=== PATIENT | female | born 1985 | race Caucasian/White ===

== ENCOUNTER 2016-12-26 13:55 | Emergency (ER) | payer OTHER ==
[~2016-12-26] VITALS: Ht 167.6 cm; Wt 63.5 kg
[~2016-12-26 13:55] MED LIST: AZIT250T PO; PRED50TA PO
[2016-12-26] MEDS ORDERED: TRAM-29 PO (14:28)
[2016-12-26] MEDS ORDERED: ONDA4TAB10 SL (14:28)
[2016-12-26] MEDS ORDERED: PENI500T PO (14:28)
--- NOTE | 2016-12-26 14:28 | PHYS DOC ---
General Chief Complaint: HEADACHE Stated Complaint: HEAD PAIN Time Seen by MD: 14:03 Source: patient Problems: History of Present Illness Initial Comments 31-year-old female patient complaining of right side of face with addition to ear and head since yesterday as a constant pain that is not like usual headache. Patient states she has a bad tooth and thinks the pain is related to her dental cavity. Allergies: Coded Allergies: No Known Drug Allergies (Unverified , 12/26/16) Review of Systems Constitutional: see HPI EENTM: see HPI Respiratory: see HPI Cardiovascular: see HPI Gastrointestinal: see HPI Genitourinary: see HPI Musculoskeletal: see HPI Skin: see HPI Psychiatric/Neurological: see HPI Hematologic/Lymphatic: see HPI Immunological/Allergic: see HPI All Other Systems: Reviewed and Negative Physical Exam General Appearance: WD/WN, no apparent distress, mild distress Eyes: bilateral eye EOMI, bilateral eye PERRL, bilateral eye normal inspection Ear, Nose, Throat: hearing grossly normal, normal ENT inspection, normal pharynx, other (extensive dental cvavities ) Neck: non-tender, full range of motion, supple Respiratory: chest non-tender, lungs clear, normal breath sounds Cardiovascular: normal peripheral pulses, regular rate, rhythm, no edema Orders, Labs, Meds Patient did not want to have pain with seen in ER Departure Departure: Impression: Primary Impression: Headache Additional Impression: Dental cavities Disposition: 01 HOME, SELF-CARE Condition: STABLE Patient Instructions: Tooth Fracture Additional Instructions: Quit smoking Follow-up with your dentist Scripts Penicillin V Potassium 500 Mg Tablet1 Tab PO TID #20 TAB Prov:DENNIS WAGNER MD 12/26/16 Tramadol Hcl (Ultram)50 Mg Nmtimi13 Mg PO PRN Q6HRS PRN PAIN #14 TAB Prov:DENNIS WAGNER MD 12/26/16 Ondansetron (Zofran Odt)4 Mg Tab.rapdis1 Tab SL Q8HRS #15 TAB Prov:DENNIS WAGNER MD 12/26/16 DENNIS WAGNER MD Dec 26, 2016 14:28
[2016-12-26 14:35] VITALS: BP 115/71
== END 2016-12-26 14:35 | disposition home or self-care (01) ==
LOC: ER 13:55
DX: R51 Headache (principal); K02.9 Dental caries, unspecified
CPT/HCPCS: 99283

== ENCOUNTER 2017-01-25 18:36 | Emergency (ER) | payer OTHER ==
[~2017-01-25] VITALS: Ht 167.6 cm; Wt 64.0 kg
[~2017-01-25 18:36] MED LIST changes: +ONDA4TAB10 SL; +PENI500T PO; +TRAM-29 PO
[2017-01-25 18:41] VITALS: BP 110/71
--- NOTE | 2017-01-25 18:59 | PHYS DOC ---
General Chief Complaint: ANKLE PROBLEM Stated Complaint: LEFT ANKLE PAIN Time Seen by MD: 18:51 Source: patient, other Problems: History of Present Illness Initial Comments Patient here with for left ankle pain. 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 This happened about a half prior to arrival in emergency department. She's been unable to walk on it since and says it hurts to straighten her leg as well. There is no real numbness tingling or weakness in the foot or toes. She did take some ynkm-ecl-zryqjjy pain medicine for this prior to arrival in the ER. notes that ankle swollen considerably within the last half hour since they removed her shoe and sock. Patient complaining of pain mostly over the lateral aspect of the ankle. As noted, she has no distal complaints, and there is no other injuries noted or reported. Patient's past medical history is otherwise unremarkable. She denies chance of . She smokes a quarter pack of cigarettes daily. She does occasional social user of ethanol. Allergies: Coded Allergies: No Known Drug Allergies (Unverified , 12/26/16) Review of Systems Constitutional: no symptoms reported Musculoskeletal: see HPI Skin: no symptoms reported Psychiatric/Neurological: no symptoms reported Physical Exam General Appearance: WD/WN, mild distress Extremities: other Neurologic/Psychiatric: alert, normal mood/affect, oriented x 3 Skin: normal color Comments Generally this is a thin white female who is moderately anxious and mildly uncomfortable with ankle pain. Vitals are as noted. Pertinent findings on physical exam shows the left ankle to be swollen significant over the lateral malleolus. There is tenderness at that site with some exaggerated response as well. There is minimal tenderness medially no swelling. The ankle joint itself appears to have some slight laxity laterally. There is no gross deformity and no crepitus. There are no distal foot or toe motor sensory or vascular deficits appreciated. Remainder of physical exam is clinically unremarkable. Orders, Labs, Meds Old charts note isolated prior ER visits for headache and URI. X-rays the left ankle show no acute fracture dislocation per the emergency physician. 1930 Patient resting comfortably in the ED. I discussed with the patient most likely diagnosis of left ankle sprain. We'll go and put her in an Aircast tonight. We'll also give her some appropriate medication at home for pain, and I written a prescription for Lortab accordingly. Also given her Lortab here. We discussed home care including rest, ice, elevation, weightbearing as tolerated, and range of motion exercises to the ankle. She voices understanding of the need to follow up with primary care or return to the ER sooner as needed if worsening anyway. She looks well, in no acute discomfort distress, resting calmly and playing on her cell phone, and okay for discharge home at this time. NYASIA CRYSTAL MD Jan 25, 2017 18:59
[2017-01-25] MEDS ORDERED: HYDROCODONE/APAP 10/325 TABLET. PO ONE (19:45)
--- NOTE | 2017-01-26 08:10 | RAD ---
ANKLE LEFT 3V Clinical Indication: Twisting injury to left ankle today, severe pain Comparison: None. Technique: Frontal, oblique and lateral views of the left ankle are obtained. Findings: No acute fracture or dislocation is seen. Ankle mortise is maintained. Surrounding soft tissues demonstrate no acute finding. IMPRESSION: No acute osseous injury.
== END 2017-01-25 19:36 | disposition home or self-care (01) ==
LOC: ER 18:36
DX: M25.572 Pain in left ankle and joints of left foot (principal); F17.210 Nicotine dependence, cigarettes, uncomplicated; X58.XXXA Exposure to other specified factors, initial encounter; Y93.89 Activity, other specified; Y99.8 Other external cause status; Y92.89 Other specified places as the place of occurrence of the external cause
CPT/HCPCS: 73610; 99284

== ENCOUNTER 2017-04-17 21:12 | Emergency (ER) | payer OTHER ==
[~2017-04-17] VITALS: Ht 170.2 cm; Wt 63.5 kg
[~2017-04-17 21:12] MED LIST changes: -TRAM-29 PO; +TRAM-48 PO
[2017-04-17 21:15] VITALS: BP 132/80
[2017-04-17] MEDS ORDERED: 0.9 % SODIUM CHLORIDE 10 ML DISP.SYRIN. IV PRN (21:15)
[2017-04-17] MEDS ORDERED: ASPIRIN 81 MG TAB.CHEW PO ONE (21:20)
[2017-04-17] MEDS ORDERED: IV NORMAL SALINE 1,000ML 1,000 ML IV SCH (21:20)
--- NOTE | 2017-04-17 21:26 | PHYS DOC ---
Past History Past Medical History: No Pertinent History Past Surgical History: No Surgical History, Other Smoking: Non-smoker Alcohol Use: Occasionally Drug Use: None Adult General Chief Complaint Chief Complaint: chest pain HPI HPI Patient is a pleasant 32-year-old female with a chest pain complaint ongoing for days. She typically cleans houses but developed chest pain anterior chest with radiating to the right left side of the jaw the right side of the chest described as a pressure. It is sharp and stabbing in some regards worse with position but not change with exertion or breathing. Patient has not had a cough or URI symptoms fevers chills or other associated symptoms with this chest pain. She is noted that a dull ache for of 10 at this time but never completely goes away. She's never had this symptom before. She denies any trauma denies any travel. She also denies any antibiotics. She has no significant medical problems or prior surgeries but she does have a significant family history in her father's had 2 mild heart attacks. Differential diagnosis for chest pain: Pericarditis, myocarditis, endocarditis, pneumothorax, pneumonia, aortic dissection, esophageal spasm, esophagitis, peptic ulcer disease, acute coronary syndrome, mediastinitis, Boerhaave syndrome , musculoskeletal chest wall pain, costochondritis, intercostal strain, rib fracture, pulmonary contusion, pneumonitis, pleural effusion, pericardial effusion, pericardial tamponode, and pleurisy. Was considered upon arrival patient is on no external sources of estrogen. PERC Criteria Assessment: Age > 50: No HR > 100: No 02 < 95%: No H/o DVT/PE: No Recent trauma/surgery: No Hemoptysis No Exogenous Estrogen: No Unilateral Leg swelling: No Pretest probability > 15%: No Less than 2% risk of PE. No further work up is necessary Concerning this is negative patient will not have any need for PE workup at this time. Review of Systems Review of Systems Constitutional: Denies fever or chills [] Eyes: Denies change in visual acuity, redness, or eye pain [] HENT: Denies nasal congestion or sore throat [] Respiratory: Denies cough or shortness of breath [] Cardiovascular: No additional information not addressed in HPI [] GI: Denies abdominal pain, nausea, vomiting, bloody stools or diarrhea [] : Denies dysuria or hematuria [] Musculoskeletal: Denies back pain or joint pain [] Integument: Denies rash or skin lesions [] Neurologic: Denies headache, focal weakness or sensory changes [] Endocrine: Denies polyuria or polydipsia [] Current Medications Current Medications Current Medications Medications (Trade) Dose Ordered Sig/Robert Start Time Stop Time Status Last Admin Dose Admin Aspirin (Children'S Aspirin) 324 mg 1X ONCE 04/17/17 21:20 04/17/17 21:21 DC Sodium Chloride (Normal Saline Flush) 10 ml QSHIFT PRN 04/17/17 21:15 Allergies Allergies Allergies Coded Allergies Type Severity Reaction Last Updated Verified No Known Drug Allergies 12/26/16 No Physical Exam Physical Exam Vital signs heart rate of 81 respiratory rate 16 and saturation 96% on room air blood pressure 132/80 otherwise normal. Constitutional: Well developed, well nourished, no acute distress, non-toxic appearance. [] HENT: Normocephalic, atraumatic, bilateral external ears normal, oropharynx moist, no oral exudates, nose normal. [] Eyes: PERRLA, EOMI, conjunctiva normal, no discharge. [] Neck: Normal range of motion, no tenderness, supple, no stridor. [] Cardiovascular:Heart rate regular rhythm, no murmur no chest wall tender to palpation is reproducible. Lungs & Thorax: Bilateral breath sounds clear to auscultation [] Abdomen: Bowel sounds normal, soft, no tenderness, no masses, no pulsatile masses. [] Skin: Warm, dry, no erythema, no rash. [] Back: No tenderness, no CVA tenderness. [] Extremities: No tenderness, no cyanosis, no clubbing, ROM intact, no edema. [] Neurologic: Alert and oriented X 3, normal motor function, normal sensory function, no focal deficits noted. [] Psychologic: Affect normal, judgement normal, mood normal. [] Current Patient Data Lab Results Laboratory Tests Test 04/17/17 21:50 04/17/17 21:58 White Blood Count 6.9 x10^3/uL (4.0-11.0) Red Blood Count 4.72 x10^6/uL (3.50-5.40) Hemoglobin 14.5 g/dL (12.0-15.5) Hematocrit 41.4 % (36.0-47.0) Mean Corpuscular Volume 88 fL (79-100) Mean Corpuscular Hemoglobin 31 pg (25-35) Mean Corpuscular Hemoglobin Concent 35 g/dL (31-37) Red Cell Distribution Width 12.9 % (11.5-14.5) Platelet Count 233 x10^3/uL (140-400) Neutrophils (%) (Auto) 61 % (31-73) Lymphocytes (%) (Auto) 29 % (24-48) Monocytes (%) (Auto) 7 % (0-9) Eosinophils (%) (Auto) 2 % (0-3) Basophils (%) (Auto) 1 % (0-3) Neutrophils # (Auto) 4.2 x10^3uL (1.8-7.7) Lymphocytes # (Auto) 2.0 x10^3/uL (1.0-4.8) Monocytes # (Auto) 0.5 x10^3/uL (0.0-1.1) Eosinophils # (Auto) 0.1 x10^3/uL (0.0-0.7) Basophils # (Auto) 0.1 x10^3/uL (0.0-0.2) Urine Collection Type Void Urine Color Yellow Urine Clarity Clear Urine pH 7.0 Urine Specific [place] 1.020 Urine Protein Neg (NEG-TRACE) Urine Glucose (UA) Neg mg/dL (NEG) Urine Ketones (Stick) Neg mg/dL (NEG) Urine Blood Trace (NEG) Urine Nitrite Neg (NEG) Urine Bilirubin Neg (NEG) Urine Urobilinogen Dipstick 1 mg/dL (0.2 mg/dL) Urine Leukocyte Esterase Neg (NEG) Urine RBC 1-2 /HPF (0-2) Urine WBC 1-4 /HPF (0-4) Urine Squamous Epithelial Cells Occ /LPF Urine Bacteria Few /HPF (0-FEW) Urine Mucus Slight /LPF Sodium Level 142 mmol/L (136-145) Potassium Level 3.4 mmol/L (3.5-5.1) L Chloride Level 103 mmol/L (98-107) Carbon Dioxide Level 33 mmol/L (21-32) H Anion Gap 6 (6-14) Blood Urea Nitrogen 13 mg/dL (7-20) Creatinine 0.8 mg/dL (0.6-1.0) Estimated GFR (Cockcroft-Gault) 84.2 BUN/Creatinine Ratio 16 (6-20) Glucose Level 90 mg/dL (70-99) Calcium Level 8.5 mg/dL (8.5-10.1) Magnesium Level 1.9 mg/dL (1.8-2.4) Total Bilirubin 0.4 mg/dL (0.2-1.0) Aspartate Amino Transferase (AST) Pending Alanine Aminotransferase (ALT) 14 U/L (14-59) Alkaline Phosphatase 88 U/L (46-116) Creatine Kinase 74 U/L (26-192) Creatine Kinase MB (Mass) 0.5 ng/mL (0.0-3.6) Creatine Kinase MB Relative Index 0.7 % (0-4) Troponin I Quantitative < 0.017 ng/mL (0-0.055) IT-Zfa-D-Type Natriuretic Peptide 35 pg/mL (0-124) Total Protein 7.4 g/dL (6.4-8.2) Albumin 3.9 g/dL (3.4-5.0) Albumin/Globulin Ratio 1.1 (1.0-1.7) Lipase 124 U/L (73-393) POC Urine HCG, Qualitative hcg negative (Negative) EKG EKG EKG timed 10:05 PM 04/17/2017 devastate normal heart rate of 68 normal sinus rhythm with no ST segment or T-wave changes consistent with acute coronary ischemia. [place] interval is normal at 146 QRS is normal 82 QTC is normal at 398. This is a normal looking EKG read by Dr. Collier. [] Radiology/Procedures Radiology/Procedures [] Course & Med Decision Making Course & Med Decision Making Pertinent Labs and Imaging studies reviewed. (See chart for details) I reviewed patient's notes, patient's complaint and duration of symptoms.Differential diagnosis for chest pain: Pericarditis, myocarditis, endocarditis, pneumothorax , pneumonia, aortic dissection, esophageal spasm, esophagitis, peptic ulcer disease, acute coronary syndrome, mediastinitis, Boerhaave syndrome, musculoskeletal chest wall pain, costochondritis, intercostal strain, rib fracture, pulmonary contusion, pneumonitis, pleural effusion, pericardial effusion, pericardial tamponode, and pleurisy. Was considered upon arrival patient has a negative EKG, negative chest x-ray negative troponin no evidence of inflammation on physical exam. This is my likely musculoskeletal or pleurisy in nature. Patient will be given anti-inflammatory and some of her breakthrough pain and encouraged follow-up with her primary care doctor. Impression: Chest pain of unclear etiology Disposition: Follow-up with her PCP for further cardiology Heart score was considered patient is low risk and be seen as an outpatient no need for admission. History: Highly suspicious 2 points moderately suspicious 1. slightly suspicious 0 point EKG: ST segment depression 2. nonspecific repolarization disturbance 1. normal 0 point Age: Greater than 65 2 points, 65-45 1., less than 45 years old 0 points Risk factors:> 3 risk factors 2 points, 1-2 risk factors one point, no risk factors 0 point Troponin: > 2 times normal 2 points, 1-2 times normal 1., normal limits 0 point Total score: Score % pts MACE/n MACE Policy 0-3 32% 1.9% 0.05% Discharge 4-6 51% 413/3136 13% 1.3% Observation Risk management 7-10 17% 518/1045 50% 2.8% Observation Treatment, CAG [] Dragon Disclaimer Dragon Disclaimer This chart was dictated in whole or in part using Voice Recognition software in a busy, high-work load, and often noisy Emergency Department environment. It may contain unintended and wholly unrecognized errors or omissions. Departure Departure: Impression: Primary Impression: Chest pain Disposition: 01 HOME, SELF-CARE Condition: IMPROVED Referrals: NON,STAFF (PCP) Patient Instructions: Chest Pain (Nonspecific), Chest Wall Pain Additional Instructions: Please follow-up your primary care doctor for referral to a windows systems administrator. Your chest pain is atypical in nature and there is no demonstrated injury to her heart today. This does not mean he do not have heart disease but I do not believe he is having a heart attack at this time. Please return for any new or increasing symptoms or given any questions or concerns. I would encourage you to use anti-inflammatories at this time for your chest discomfort and have you follow-up with your regular doctor for routine care. Scripts Naproxen (NAPROSYN) 500 Mg Tablet 1 TAB PO BID, #20 TAB 1 Refill Prov: ARMANDO COLLIER MD 04/17/17 ARMANDO COLLIER MD Apr 17, 2017 21:25
[2017-04-17 22:11] LABS: BILIRUBIN,URINE NEG (NEG); CLARITY,URINE CLEAR; COLOR,URINE YELLOW; GLUCOSE,URINE NEG (NEG); NITRITE,URINE NEG (NEG); UROBILINOGEN,URINE 1 mg/dL (0.2 mg/dL)
[2017-04-17 22:16] LABS: BACTERIA,URINE FEW /HPF (0-FEW); SQUAMOUS EPITHELIAL CELL,UR OCC /LPF
[2017-04-17 22:17] LABS: BASO # 0.1 x10^3/uL (0.0-0.2); BASO % 1 % (0-3); EOS # 0.1 x10^3/uL (0.0-0.7); EOS % 2 % (0-3); HEMATOCRIT 41.4 % (36.0-47.0); HEMOGLOBIN 14.5 g/dL (12.0-15.5); LYMPH % 29 % (24-48); MEAN CORPUSCULAR HEMOGLOBIN 31 pg (25-35); MEAN CORPUSCULAR HGB CONC 35 g/dL (31-37); MEAN CORPUSCULAR VOLUME 88 fL (79-100); MONO # 0.5 x10^3/uL (0.0-1.1); MONO % 7 % (0-9); NEUT # 4.2 x10^3uL (1.8-7.7); NEUT % 61 % (31-73); PLATELET COUNT 233 x10^3/uL (140-400); RED BLOOD COUNT 4.72 x10^6/uL (3.50-5.40); RED CELL DISTRIBUTION WIDTH 12.9 % (11.5-14.5); WHITE BLOOD COUNT 6.9 x10^3/uL (4.0-11.0)
--- NOTE | 2017-04-17 22:22 | EKG ---
[address] [address] Test Date: 2017-04-17 Test Time: 22:05:23 Pat Name: HERSON FRIED Department: Room: Gender: F Software Systems Architect: HERSON FRIED : 1985 Requested By: ARMANDO COLLIER Order Number: [id number] Reading MD: Measurements Intervals [place] Rate: 68 P: 49 FL: 146 QRS: 84 QRSD: 82 T: 34 QT: 370 QTc: 398 Interpretive Statements SINUS RHYTHM QRS(T) CONTOUR ABNORMALITY CANNOT RULE OUT ANTEROSEPTAL MYOCARDIAL DAMAGE RI6.01 Unconfirmed report No previous ECG available for comparison
[2017-04-17 22:33] LABS: ALBUMIN 3.9 g/dL (3.4-5.0); ALBUMIN/GLOBULIN RATIO 1.1 (1.0-1.7); CALCIUM 8.5 mg/dL (8.5-10.1); CREATININE 0.8 mg/dL (0.6-1.0); GFR 84.2; MAGNESIUM 1.9 mg/dL (1.8-2.4); POTASSIUM 3.4 mmol/L (3.5-5.1); TOTAL BILIRUBIN 0.4 mg/dL (0.2-1.0); TOTAL PROTEIN 7.4 g/dL (6.4-8.2)
[2017-04-17] MEDS ORDERED: NAPR500T PO (22:48)
--- NOTE | 2017-04-18 08:15 | RAD ---
Chest, 2 views, 04/17/2017: History: Mid chest pain The heart size and pulmonary vascularity are normal. The lungs are clear. There is no evidence of pleural fluid. IMPRESSION: No acute cardiopulmonary abnormality is detected.
== END 2017-04-17 23:05 | disposition home or self-care (01) ==
LOC: ER 21:12
DX: R07.89 Other chest pain (principal)
CPT/HCPCS: 36415; 71020; 80053; 81001; 81025; 82553; 83690; 83735; 83880; 84443; 84484; 85027; 93005; 96360; 99285-25; J7030

== ENCOUNTER 2017-07-03 20:50 | Emergency (ER) | payer OTHER ==
[~2017-07-03] VITALS: Ht 170.2 cm; Wt 68.9 kg
[~2017-07-03 20:50] MED LIST changes: +NAPR500T PO
[2017-07-03] MEDS ORDERED: IBUPROFEN 600 MG TABLET. PO ONE (21:45)
--- NOTE | 2017-07-03 22:09 | EKG ---
[address] [address] Test Date: 2017-07-03 Test Time: 21:10:30 Pat Name: HERSON FRIED Department: Room: Gender: F Custodial Manager: : 1985 Requested By: DAI SANTOS Order Number: [id number] Reading MD: Measurements Intervals [place] Rate: 79 P: 46 [place]: 144 QRS: 89 QRSD: 80 T: 23 QT: 344 QTc: 395 Interpretive Statements SINUS RHYTHM NO SPECIFIC ECG ABNORMALITIES RI6.01 No previous ECG available for comparison
--- NOTE | 2017-07-04 00:09 | PHYS DOC ---
Past History Past Medical History: Endometriosis, Other Past Surgical History: No Surgical History, Other Smoking: Non-smoker Alcohol Use: Occasionally Drug Use: None Adult General Chief Complaint Chief Complaint: CHEST PAIN HPI HPI 32-year-old female with no significant past medical history now presents to the emergency department complaining of sharp pain in her left lung area when she coughs. Patient is a smoker and smokes daily. Over the last 2 days she's had a productive cough. Today she evolved left-sided soreness when she coughs. She is not short of breath at rest or with exertion. She has no fevers chills sweats or shaking chills. Patient does not have exertional chest pain of any kind. She has no history of hypercoagulability nor has she ever had a blood clot. She has no leg swelling or pain and no recent history of stasis or risk factors for pulmonary embolism. Patient denies possibility of as she states her man as a vasectomy and she's had normal menses. Review of Systems Review of Systems Constitutional: Denies fever or chills [] Eyes: Denies change in visual acuity, redness, or eye pain [] HENT: Denies nasal congestion or sore throat [] Respiratory: Denies cough or shortness of breath [] Cardiovascular: No additional information not addressed in HPI [] GI: Denies abdominal pain, nausea, vomiting, bloody stools or diarrhea [] : Denies dysuria or hematuria [] Musculoskeletal: Denies back pain or joint pain [] Integument: Denies rash or skin lesions [] Neurologic: Denies headache, focal weakness or sensory changes [] Endocrine: Denies polyuria or polydipsia [] Current Medications Current Medications Current Medications Medications (Trade) Dose Ordered Sig/[facility] Start Time Stop Time Status Last Admin Dose Admin Ibuprofen (Motrin) 600 mg 1X ONCE 07/03/17 21:45 07/03/17 21:46 DC 07/03/17 22:17 600 MG Allergies Allergies Allergies Coded Allergies Type Severity Reaction Last Updated Verified No Known Drug Allergies 12/26/16 No Physical Exam Physical Exam Well-appearing patient no acute distress supple neck clear lungs regular rate and rhythm nontender chest wall no skin changes no subcutaneous air of the chest wall. Nontender abdomen specifically benign left subcostal distribution and epigastrium. No CVA tenderness. Normal lower extremities with no asymmetry or tenderness no cords. Constitutional: Well developed, well nourished, no acute distress, non-toxic appearance. [] HENT: Normocephalic, atraumatic, bilateral external ears normal, oropharynx moist, no oral exudates, nose normal. [] Eyes: PERRLA, EOMI, conjunctiva normal, no discharge. [] Neck: Normal range of motion, no tenderness, supple, no stridor. [] Cardiovascular:Heart rate regular rhythm, no murmur [] Lungs & Thorax: Bilateral breath sounds clear to auscultation [] Abdomen: Bowel sounds normal, soft, no tenderness, no masses, no pulsatile masses. [] Skin: Warm, dry, no erythema, no rash. [] Back: No tenderness, no CVA tenderness. [] Extremities: No tenderness, no cyanosis, no clubbing, ROM intact, no edema. [] Neurologic: Alert and oriented X 3, normal motor function, normal sensory function, no focal deficits noted. [] Psychologic: Affect normal, judgement normal, mood normal. [] Current Patient Data Vital Signs Vital Signs Date Time Temp Pulse Resp B/P (MAP) Pulse Ox O2 Delivery O2 Flow Rate FiO2 07/03/17 21:18 98.3 80 24 97 Room Air Lab Results Laboratory Tests Test 07/03/17 22:15 D-Dimer (Toya) < 0.19 mg/L (0.00-0.50) EKG EKG [] Radiology/Procedures Radiology/Procedures Wrist x-ray no acute disease, bilateral nipple piercings in place, interpreted by me[] Course & Med Decision Making Course & Med Decision Making Pertinent Labs and Imaging studies reviewed. (See chart for details) Signs and symptoms consistent with pleuritic pain in the setting of history and findings that suggest upper respiratory infection complicated by chronic tobacco abuse. Patient with low pretest probability for pulmonary embolism and a negative d-dimer. Chest x-ray unremarkable. Discussed with patient recommend smoking cessation and using [id number]-[id number] cough control as needed. She is aware to rest and drink plenty of fluids. She will use NSAIDs and Tylenol as needed for discomfort and follow with her primary care doctor for reevaluation and further workup and treatment as needed. She and her significant other agree with outpatient follow-up and strict return precautions given [] Dragon Disclaimer Dragon Disclaimer This chart was dictated in whole or in part using Voice Recognition software in a busy, high-work load, and often noisy Emergency Department environment. It may contain unintended and wholly unrecognized errors or omissions. Departure Departure: Impression: Primary Impression: Upper respiratory infection Additional Impressions: Pleurisy Cough Disposition: HOME, SELF-CARE Condition: IMPROVED Referrals: NON,STAFF (PCP) Patient Instructions: Pleurisy, Upper Respiratory Infection, Adult Additional Instructions: It appears that you have an upper respiratory infection causing your cough. Be aware that smoking predisposes you to upper respiratory infections and can also make a respiratory illness worse. Your sharp pain appears to be a result of pleurisy which means irritation of the lung lining. Typically this pain is sharp in nature and worse with breathing or coughing. Take ibuprofen 800 mg every 6 hours and Tylenol every 4 hours as needed. Your x-ray was normal today. Follow-up with your doctor in 1-2 days for reevaluation and to discuss techniques of smoking cessation. Return immediately for new severe worsening symptoms Problem Qualifiers DAI SANTOS MD Jul 04, 2017 00:09
[2017-07-04 00:15] VITALS: BP 107/65
--- NOTE | 2017-07-04 09:38 | RAD ---
Chest, 2 views, 07/03/2017: History: Chest pain, cough Comparison is made to a study from 04/17/2017. The heart size and pulmonary vascularity are normal. No pulmonary infiltrates are seen. There is no evidence of pleural fluid. IMPRESSION: No acute cardiopulmonary abnormality is detected.
== END 2017-07-04 00:20 | disposition home or self-care (01) ==
LOC: ER 20:50
DX: R09.1 Pleurisy (principal); J06.9 Acute upper respiratory infection, unspecified
CPT/HCPCS: 36415; 71020; 85379; 93005; 99285-25

== ENCOUNTER 2017-11-27 06:06 | Emergency (ER) | payer SELFPAY ==
[~2017-11-27] VITALS: Ht 170.2 cm; Wt 75.1 kg
[~2017-11-27 06:06] MED LIST changes: +NAPR-683 PO; -NAPR500T PO
[2017-11-27] MEDS ORDERED: KETOROLAC 60 MG/2 ML VIAL. IM ONE (06:45)
[2017-11-27] MEDS ORDERED: IV NORMAL SALINE 1,000ML 1,000 ML IV ONE (07:00)
[2017-11-27] MEDS ORDERED: ONDANSETRON PF 4 MG/2 ML VIAL. ONE (07:04)
[2017-11-27] MEDS ORDERED: ONDANSETRON PF 4 MG/2 ML VIAL. IV ONE (07:15)
[2017-11-27 07:20] LABS: BASO # 0.1 x10^3/uL (0.0-0.2); BASO % 1 % (0-3); EOS # 0.2 x10^3/uL (0.0-0.7); EOS % 2 % (0-3); HEMATOCRIT 42.6 % (36.0-47.0); HEMOGLOBIN 14.9 g/dL (12.0-15.5); LYMPH # 1.2 x10^3/uL (1.0-4.8); LYMPH % 10 % (24-48); MEAN CORPUSCULAR HEMOGLOBIN 31 pg (25-35); MEAN CORPUSCULAR HGB CONC 35 g/dL (31-37); MEAN CORPUSCULAR VOLUME 87 fL (79-100); MONO # 0.7 x10^3/uL (0.0-1.1); MONO % 5 % (0-9); NEUT # 10.4 x10^3uL (1.8-7.7); NEUT % 83 % (31-73); PLATELET COUNT 188 x10^3/uL (140-400); RED BLOOD COUNT 4.88 x10^6/uL (3.50-5.40); RED CELL DISTRIBUTION WIDTH 13.3 % (11.5-14.5); WHITE BLOOD COUNT 12.5 x10^3/uL (4.0-11.0)
[2017-11-27 07:36] LABS: ALBUMIN 3.8 g/dL (3.4-5.0); ALBUMIN/GLOBULIN RATIO 1.1 (1.0-1.7); CALCIUM 8.5 mg/dL (8.5-10.1); CREATININE 0.8 mg/dL (0.6-1.0); GFR 84.2; POTASSIUM 3.9 mmol/L (3.5-5.1); TOTAL BILIRUBIN 0.7 mg/dL (0.2-1.0); TOTAL PROTEIN 7.2 g/dL (6.4-8.2)
[2017-11-27] MEDS ORDERED: IOHEXOL 300 MG/ML 75 ML VIAL. IV ONE (08:00)
--- NOTE | 2017-11-27 08:24 | RAD ---
EXAM: CT abdomen/pelvis with contrast. HISTORY: Right abdominal pain. TECHNIQUE: Computed tomography of the abdomen and pelvis was performed after the intravenous administration of 75 mL Omnipaque 300. COMPARISON: None. FINDINGS: Lung windows through the visualized portions of the bases reveal mild atelectasis. Bone windows reveal no suspicious lesions. The appendix is mildly dilated at 8 mm. There is mural enhancement. There is no surrounding fluid collection. A follicle in the right ovary measures 3.1 x 2.3 cm. A small amount of free pelvic fluid is likely physiologic. There is no obstruction. The liver, gallbladder, pancreas, adrenal glands, kidneys and spleen are unremarkable. There are no pathologically enlarged lymph nodes. IMPRESSION: 1. Findings consistent with early acute appendicitis. Correlate for leukocytosis and with other clinical data. 2. A 3.1 cm right ovarian follicle is likely physiologic but may contribute to symptoms. *One or more of the following individualized dose reduction techniques were utilized for this examination: 1. Automated exposure control. 2. Adjustment of the mA and/or kV according to patient size. 3. Use of iterative reconstruction technique.
--- NOTE | 2017-11-27 09:03 | PHYS DOC ---
Past History Past Medical History: Endometriosis, Other Past Surgical History: No Surgical History, Other Smoking: Non-smoker Alcohol Use: Occasionally Drug Use: None Adult General Chief Complaint Chief Complaint: ABDOMINAL PAIN HPI HPI Patient is a 32 year old F who presents with generalized abdominal pain with nausea vomiting and diarrhea that started yesterday and progressed to more severe right lower quadrant pain. She has had no abdominal surgeries. Her last menstrual cycle was 2 and half weeks ago and she states that she is irregular. She has no other associated signs or symptoms. She has no other exacerbating or alleviating factors. Review of Systems Review of Systems Constitutional: Negative except history of present illness Eyes: Denies change in visual acuity, redness, or eye pain [] HENT: Denies nasal congestion or sore throat [] Respiratory: Denies cough or shortness of breath [] Cardiovascular: No additional information not addressed in HPI [] GI: Negative except history of present illness : Denies dysuria or hematuria [] Musculoskeletal: Denies back pain or joint pain [] Integument: Denies rash or skin lesions [] Neurologic: Denies headache, focal weakness or sensory changes [] Endocrine: Denies polyuria or polydipsia [] All other systems were reviewed and found to be within normal limits, except as documented in this note. Family History Family History Noncontributory Current Medications Current Medications Current Medications Medications (Trade) Dose Ordered Sig/Robert Start Time Stop Time Status Last Admin Dose Admin Iohexol (Omnipaque 300 Mg/ml) 75 ml 1X ONCE 11/27/17 08:00 11/27/17 08:01 DC 11/27/17 07:55 75 ML Ketorolac Tromethamine (Toradol) 60 mg 1X ONCE 11/27/17 06:45 11/27/17 06:46 DC Ondansetron HCl (Zofran) 4 mg 1X ONCE 11/27/17 07:15 11/27/17 07:16 DC 11/27/17 07:08 4 MG Sodium Chloride 1,000 ml @ 1,000 mls/hr 1X ONCE 11/27/17 07:00 11/27/17 07:59 DC 11/27/17 07:07 1,000 MLS/HR Allergies Allergies Allergies Coded Allergies Type Severity Reaction Last Updated Verified No Known Drug Allergies 12/26/16 No Physical Exam Physical Exam Constitutional: Well developed, well nourished, mild acute distress, non-toxic appearance. [] HENT: Normocephalic, atraumatic Eyes: EOMI, conjunctiva normal, no discharge. [] Neck: Normal range of motion, no tenderness, supple, no stridor. [] Cardiovascular:Heart rate regular rhythm, Lungs & Thorax: Bilateral breath sounds clear to auscultation [] Abdomen: Bowel sounds normal, soft, no masses, no pulsatile masses. Moderate RLQ pain Skin: Warm, dry, no erythema, no rash. [] Back: No tenderness, no CVA tenderness. [] Extremities: No tenderness, no cyanosis, no clubbing, ROM intact, no edema. [] Neurologic: Alert and oriented X 3, normal motor function, normal sensory function, no focal deficits noted. [] Psychologic: Affect normal, judgement normal, mood normal. [] Current Patient Data Vital Signs Vital Signs Date Time Temp Pulse Resp B/P (MAP) Pulse Ox O2 Delivery O2 Flow Rate FiO2 11/27/17 08:12 74 18 119/62 (81) 98 Room Air 11/27/17 06:10 98.0 Lab Results Laboratory Tests Test 11/27/17 07:00 White Blood Count 12.5 x10^3/uL (4.0-11.0) H Red Blood Count 4.88 x10^6/uL (3.50-5.40) Hemoglobin 14.9 g/dL (12.0-15.5) Hematocrit 42.6 % (36.0-47.0) Mean Corpuscular Volume 87 fL (79-100) Mean Corpuscular Hemoglobin 31 pg (25-35) Mean Corpuscular Hemoglobin Concent 35 g/dL (31-37) Red Cell Distribution Width 13.3 % (11.5-14.5) Platelet Count 188 x10^3/uL (140-400) Neutrophils (%) (Auto) 83 % (31-73) H Lymphocytes (%) (Auto) 10 % (24-48) L Monocytes (%) (Auto) 5 % (0-9) Eosinophils (%) (Auto) 2 % (0-3) Basophils (%) (Auto) 1 % (0-3) Neutrophils # (Auto) 10.4 x10^3uL (1.8-7.7) H Lymphocytes # (Auto) 1.2 x10^3/uL (1.0-4.8) Monocytes # (Auto) 0.7 x10^3/uL (0.0-1.1) Eosinophils # (Auto) 0.2 x10^3/uL (0.0-0.7) Basophils # (Auto) 0.1 x10^3/uL (0.0-0.2) Sodium Level 139 mmol/L (136-145) Potassium Level 3.9 mmol/L (3.5-5.1) Chloride Level 103 mmol/L (98-107) Carbon Dioxide Level 28 mmol/L (21-32) Anion Gap 8 (6-14) Blood Urea Nitrogen 13 mg/dL (7-20) Creatinine 0.8 mg/dL (0.6-1.0) Estimated GFR (Cockcroft-Gault) 84.2 BUN/Creatinine Ratio 16 (6-20) Glucose Level 109 mg/dL (70-99) H Calcium Level 8.5 mg/dL (8.5-10.1) Total Bilirubin 0.7 mg/dL (0.2-1.0) Aspartate Amino Transferase (AST) 11 U/L (15-37) L Alanine Aminotransferase (ALT) 15 U/L (14-59) Alkaline Phosphatase 68 U/L (46-116) Total Protein 7.2 g/dL (6.4-8.2) Albumin 3.8 g/dL (3.4-5.0) Albumin/Globulin Ratio 1.1 (1.0-1.7) EKG EKG [] Radiology/Procedures Radiology/Procedures CT scan Impressions: Early acute appendicitis Course & Med Decision Making Course & Med Decision Making Pertinent Labs and Imaging studies reviewed. (See chart for details) Zeynep preferred to continue her care at [facility]. Dr. Alejo, Surgeon at [facility] [place], was contacted by phone. Her case was reviewed. He recommended transfer via private vehicle. She was transferred in stable condition Dragon Disclaimer Dragon Disclaimer This electronic medical record was generated, in whole or in part, using a voice recognition dictation system. Departure Departure: Impression: Primary Impression: Appendicitis Disposition: ADMITTED INPATIENT Condition: STABLE Referrals: NON,STAFF (PCP) Problem Qualifiers Primary Impression: Appendicitis Appendicitis type: acute appendicitis Acute appendicitis type: with localized peritonitis Qualified Codes: K35.3 - Acute appendicitis with localized peritonitis JESSICA BRAND MD Nov 27, 2017 09:03
[2017-11-27 09:05] VITALS: BP 116/72
== END 2017-11-27 09:50 | disposition other institution (70) ==
LOC: ER 06:06
DX: K35.3 Acute appendicitis with localized peritonitis (principal)
CPT/HCPCS: 36415; 74177; 80053; 85025; 96361; 96374; 99285; J2405; Q9967; J7030

== ENCOUNTER 2018-02-20 22:29 | Emergency (ER) | payer SELFPAY ==
[~2018-02-20] VITALS: Ht 170.2 cm; Wt 79.8 kg
[2018-02-20 23:44] LABS: BASO # 0.1 x10^3/uL (0.0-0.2); BASO % 1 % (0-3); EOS # 0.2 x10^3/uL (0.0-0.7); EOS % 3 % (0-3); HEMATOCRIT 41.9 % (36.0-47.0); HEMOGLOBIN 14.7 g/dL (12.0-15.5); LYMPH % 28 % (24-48); MEAN CORPUSCULAR HEMOGLOBIN 31 pg (25-35); MEAN CORPUSCULAR HGB CONC 35 g/dL (31-37); MEAN CORPUSCULAR VOLUME 88 fL (79-100); MONO # 0.6 x10^3/uL (0.0-1.1); MONO % 9 % (0-9); NEUT # 4.1 x10^3uL (1.8-7.7); NEUT % 59 % (31-73); PLATELET COUNT 212 x10^3/uL (140-400); RED BLOOD COUNT 4.76 x10^6/uL (3.50-5.40); RED CELL DISTRIBUTION WIDTH 12.9 % (11.5-14.5); WHITE BLOOD COUNT 6.9 x10^3/uL (4.0-11.0)
--- NOTE | 2018-02-20 23:50 | EKG ---
[address] [address] Test Date: 2018-02-20 Test Time: 22:45:57 Pat Name: HERSON FRIED Department: Room: Gender: F Child Psychiatrist: GRACE : 1985 Requested By: DAI SANTOS Order Number: [id number] Reading MD: Measurements Intervals [place] Rate: 77 P: 52 CA: 152 QRS: 84 QRSD: 82 T: 33 QT: 352 QTc: 400 Interpretive Statements SINUS RHYTHM QRS(T) CONTOUR ABNORMALITY CONSIDER ANTEROSEPTAL MYOCARDIAL DAMAGE POSSIBLY ABNORMAL ECG RI6.01 No previous ECG available for comparison
[2018-02-20 23:51] LABS: ALBUMIN 3.8 g/dL (3.4-5.0); ALBUMIN/GLOBULIN RATIO 1.2 (1.0-1.7); CALCIUM 8.5 mg/dL (8.5-10.1); CREATININE 0.8 mg/dL (0.6-1.0); GFR 84.2; TOTAL BILIRUBIN 0.3 mg/dL (0.2-1.0); TOTAL PROTEIN 6.9 g/dL (6.4-8.2)
[2018-02-21] MEDS ORDERED: ASPIRIN 81 MG TAB.CHEW PO ONE
[2018-02-21 00:01] LABS: BACTERIA,URINE MANY /HPF (0-FEW); BILIRUBIN,URINE NEG (NEG); CLARITY,URINE CLOUDY; COLOR,URINE YELLOW; GLUCOSE,URINE NEG (NEG); NITRITE,URINE POS (NEG); SQUAMOUS EPITHELIAL CELL,UR FEW /LPF; UROBILINOGEN,URINE 0.2 mg/dL (0.2 mg/dL)
--- NOTE | 2018-02-21 00:23 | PHYS DOC ---
Past History Past Medical History: Endometriosis, Other Past Surgical History: No Surgical History, Other Smoking: Non-smoker Alcohol Use: Occasionally Drug Use: None Adult General Chief Complaint Chief Complaint: CHEST PAIN HPI HPI 32-year-old female with a history of anxiety now presents the emergency department complaining of mid chest pain which is sharp. 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 She was so stress she had to take the whole last week off and then she went to a car race today. Patient perceived this discomfort so she came to the emergency department for evaluation. She denies vertigo pain or shortness of breath. No productive cough or fever. Patient has had no trauma. She denies exertional pain. Patient is a smoker and she would like to quit. She does not have high blood pressure high cholesterol diabetes. She doesn't a family history with her father having urinary artery disease in his 50s. Review of Systems Review of Systems Constitutional: Denies fever or chills [] Eyes: Denies change in visual acuity, redness, or eye pain [] HENT: Denies nasal congestion or sore throat [] Respiratory: Denies cough or shortness of breath [] Cardiovascular: No additional information not addressed in HPI [] GI: Denies abdominal pain, nausea, vomiting, bloody stools or diarrhea [] : Denies dysuria or hematuria [] Musculoskeletal: Denies back pain or joint pain [] Integument: Denies rash or skin lesions [] Neurologic: Denies headache, focal weakness or sensory changes [] Endocrine: Denies polyuria or polydipsia [] All other systems were reviewed and found to be within normal limits, except as documented in this note. Current Medications Current Medications Current Medications Medications (Trade) Dose Ordered Sig/[facility] Start Time Stop Time Status Last Admin Dose Admin Aspirin (Children'S Aspirin) 324 mg 1X ONCE 02/21/18 00:00 02/21/18 00:01 DC 02/21/18 00:16 324 MG Allergies Allergies Allergies Coded Allergies Type Severity Reaction Last Updated Verified No Known Drug Allergies 12/26/16 No Physical Exam Physical Exam Constitutional: Well developed, well nourished, no acute distress, non-toxic appearance. [] HENT: Normocephalic, atraumatic, bilateral external ears normal, oropharynx moist, no oral exudates, nose normal. [] Eyes: PERRLA, EOMI, conjunctiva normal, no discharge. [] Neck: Normal range of motion, no tenderness, supple, no stridor. [] Cardiovascular:Heart rate regular rhythm, no murmur [] Lungs & Thorax: Bilateral breath sounds clear to auscultation [] Abdomen: Bowel sounds normal, soft, no tenderness, no masses, no pulsatile masses. [] Skin: Warm, dry, no erythema, no rash. [] Back: No tenderness, no CVA tenderness. [] Extremities: No tenderness, no cyanosis, no clubbing, ROM intact, no edema. [] Neurologic: Alert and oriented X 3, normal motor function, normal sensory function, no focal deficits noted. [] Psychologic: Affect normal, judgement normal, mood normal. [] Current Patient Data Lab Results Laboratory Tests Test 02/20/18 22:40 02/20/18 23:05 Urine Collection Type Unknown Urine Color Yellow Urine Clarity Cloudy Urine pH 7.0 Urine Specific [place] 1.025 Urine Protein Neg (NEG-TRACE) Urine Glucose (UA) Neg mg/dL (NEG) Urine Ketones (Stick) Neg mg/dL (NEG) Urine Blood Trace (NEG) Urine Nitrite Pos (NEG) Urine Bilirubin Neg (NEG) Urine Urobilinogen Dipstick 0.2 mg/dL (0.2 mg/dL) Urine Leukocyte Esterase Trace (NEG) Urine RBC 1-2 /HPF (0-2) Urine WBC 1-4 /HPF (0-4) Urine Squamous Epithelial Cells Few /LPF Urine Bacteria Many /HPF (0-FEW) Urine Mucus Slight /LPF White Blood Count 6.9 x10^3/uL (4.0-11.0) Red Blood Count 4.76 x10^6/uL (3.50-5.40) Hemoglobin 14.7 g/dL (12.0-15.5) Hematocrit 41.9 % (36.0-47.0) Mean Corpuscular Volume 88 fL (79-100) Mean Corpuscular Hemoglobin 31 pg (25-35) Mean Corpuscular Hemoglobin Concent 35 g/dL (31-37) Red Cell Distribution Width 12.9 % (11.5-14.5) Platelet Count 212 x10^3/uL (140-400) Neutrophils (%) (Auto) 59 % (31-73) Lymphocytes (%) (Auto) 28 % (24-48) Monocytes (%) (Auto) 9 % (0-9) Eosinophils (%) (Auto) 3 % (0-3) Basophils (%) (Auto) 1 % (0-3) Neutrophils # (Auto) 4.1 x10^3uL (1.8-7.7) Lymphocytes # (Auto) 2.0 x10^3/uL (1.0-4.8) Monocytes # (Auto) 0.6 x10^3/uL (0.0-1.1) Eosinophils # (Auto) 0.2 x10^3/uL (0.0-0.7) Basophils # (Auto) 0.1 x10^3/uL (0.0-0.2) Sodium Level 141 mmol/L (136-145) Potassium Level 4.0 mmol/L (3.5-5.1) Chloride Level 105 mmol/L (98-107) Carbon Dioxide Level 29 mmol/L (21-32) Anion Gap 7 (6-14) Blood Urea Nitrogen 14 mg/dL (7-20) Creatinine 0.8 mg/dL (0.6-1.0) Estimated GFR (Cockcroft-Gault) 84.2 BUN/Creatinine Ratio 18 (6-20) Glucose Level 95 mg/dL (70-99) Calcium Level 8.5 mg/dL (8.5-10.1) Total Bilirubin 0.3 mg/dL (0.2-1.0) Aspartate Amino Transferase (AST) 13 U/L (15-37) L Alanine Aminotransferase (ALT) 24 U/L (14-59) Alkaline Phosphatase 91 U/L (46-116) Troponin I Quantitative < 0.017 ng/mL (0-0.055) Total Protein 6.9 g/dL (6.4-8.2) Albumin 3.8 g/dL (3.4-5.0) Albumin/Globulin Ratio 1.2 (1.0-1.7) EKG EKG EKG with normal sinus rhythm at 77 normal axis no STEMI interpreted by me[] Radiology/Procedures Radiology/Procedures Chest x-ray with no acute disease unremarkable study interpreted by me[] Course & Med Decision Making Course & Med Decision Making Pertinent Labs and Imaging studies reviewed. (See chart for details) Signs and symptoms consistent with exacerbation of anxiety. Patient has nonspecific chest pain with no evidence of acute coronary syndrome with a low risk heart score. Patient has no dyspnea or tachycardia, no risk factors for PE endings not clinically consistent with that diagnosis. No further workup or treatment indicated at this time. Patient agrees that outpatient follow-up and strict return precautions given [] Dragon Disclaimer Dragon Disclaimer This electronic medical record was generated, in whole or in part, using a voice recognition dictation system. Departure Departure: Impression: Primary Impression: Nonspecific chest pain Additional Impression: Anxiety Disposition: HOME, SELF-CARE Condition: GOOD Referrals: CARLOZ CHAKRABORTY MD (PCP) Patient Instructions: Anxiety and Panic Attacks, Chest Pain (Nonspecific) Additional Instructions: It is not clear what caused of your chest pain was this evening however there is no evidence that the cause is 1 which represents an immediate danger. It is clear that your anxiety and stress has a contributory component today. A full workup in the emergency department was unremarkable and it's appropriate to heavy follow-up with your doctor as an outpatient. Follow-up tomorrow for reevaluation, to arrange further workup and treatment as needed, and to discuss whether he may benefit from an outpatient prescription for anxiety medication for use as needed. Return immediately for new severe worsening symptoms Problem Qualifiers DAI SANTOS MD February 21, 2018 00:23
[2018-02-21 01:15] VITALS: BP 112/72
--- NOTE | 2018-02-21 09:03 | RAD ---
Portable AP chest. HISTORY: Chest pain AP view was taken of the chest. Lungs are clear. Heart is normal in size without heart failure. There is no effusion. IMPRESSION: 1. No acute chest disease. Electronically signed by: Obey Pierre MD (02/21/2018 9:00 AM) [facility]
== END 2018-02-21 01:16 | disposition home or self-care (01) ==
LOC: ER 22:29
DX: F41.9 Anxiety disorder, unspecified (principal)
CPT/HCPCS: 36415; 71045; 80053; 81001; 84484; 85025; 93005; 99285-25